=== PATIENT | male | born 1940 | race Caucasian/White ===

== ENCOUNTER → 2019-11-29 09:31 | Outpatient (CLI) | payer OTHER ==
--- NOTE | 2019-12-03 10:54 | EC ---
PATIENT:SPENCER COX DATE OF SERVICE: 11/29/19 SEX: M MEDICAL RECORD: [id number] DATE OF : 42 [facility] AGE [facility] PAT[facility]: 79 ADMISSION DATE: 11/29/19 REFERRING PHYSICIAN: INTERPRETING PHYSICIAN: LIONEL GAMING MD ECHOCARDIOGRAM REPORT ECHO CHARGES 4 ECHO COMPLETE Date: 11/29/19 CLINICAL DIAGNOSIS: HTN HX CAD/AFIB /TR ECHOCARDIOGRAPHIC MEASUREMENTS (adult normal given) AC root (d.<3.7cm) 3.1 cm LV Septum d (<1.2 cm> 1.1 cm Valve Excursion 1.1 cm LV Septum (systole) 1.4 cm Left Atria (s.<4.0cm> 4.1 cm LVPW d(<1.2cm) 1.3 cm RV (d.<2.3cm) 4.1 cm LVPW (sytole) 1.6 cm LV diastole(<5.6CM) 4.8 cm MV E-F(>70mm/sec) cm LV systole 2.9 cm LVOT Diameter 2.1 cm MV exc.(>10mm) 0.80 cm Est.ejection fraction (50-75%) % DOPPLER: LVIT cm/sec A 95.0 cm/sec E 69.0 cm/sec LA cm/sec RVSP 38 mmHg LVOT 97 cm/sec AOP1/2T m/s Asc. Ao 144 cm/sec RVOT 62 cm/sec RA cm/sec PA 108 cm/sec AV Gradient Peak 8.28 mmHg AV Mean 4.56 mmHg AV Area 2.6 cm MV Gradient Peak 4.66 mmHg MV Mean 1.01 mmHg MV Area cm COMMENTS: Medical Artist: 2 ELADIO BA System Support Analyst: 3 Dr. Wren TAPE# PACS Pericardial Effusion N DATE OF SERVICE: Adequate 2D, color flow imaging, spectral Doppler, and M-Mode. Borderline LVH. LV internal dimensions are normal. Wall motion is normal. EF is greater than or equal to 55%. Aortic valve is sclerotic. There is no evidence of stenosis by Doppler interrogation. Left atrium is upper limits of normal and mildly dilated at 4.1 cm. Mitral valve shows no prolapse. Trace MR. Right-sided chambers are grossly normal. Trace TR. ECHOCARDIOGRAM REPORT [id number] SPENCER COX TRANSINT:[id number] Voice Confirmation ID: [id number] DOCUMENT ID: [id number] LIONEL GAMING MD at 1054 CC: [id number] DICTATION DATE: 11/29/19 1309 DIRECTOR OF PERIOPERATIVE SERVICES: 11/29/19 1449 DEP CLI 11/29/19 [place] [id number] [place] [id number]
== END | disposition home or self-care (01) ==
LOC: D.HCCECHO 09:30
PROVIDERS: ATTEND Internal Medicine Interventional Cardiology
DX: I10 Essential (primary) hypertension (principal)

== ENCOUNTER → 2021-01-09 08:01 | Outpatient (CLI) | payer OTHER ==
--- NOTE | ~2021-01-09 | EC ---
PATIENT:SPENCER COX DATE OF SERVICE: 01/09/21 SEX: M MEDICAL RECORD: [id number] DATE OF : 42 LOCATION:[facility] AGE OF PATIENT: 80 ADMISSION DATE: 01/09/21 REFERRING PHYSICIAN: INTERPRETING PHYSICIAN: LIONEL GAMING MD ECHOCARDIOGRAM REPORT ECHO CHARGES 4 ECHO COMPLETE Date: 01/09/21 CLINICAL DIAGNOSIS: ASSESS EF/ MITRAL AND TRICUSPID REGURG HX OF AFIB/HTN ECHOCARDIOGRAPHIC MEASUREMENTS (adult normal given) AC root (d.<3.7cm) 3.2 cm LV Septum d (<1.2 cm> 1.4 cm Valve Excursion 1.5 cm LV Septum (systole) 1.6 cm Left Atria (s.<4.0cm> 3.7 cm LVPW d(<1.2cm) 1.4 cm RV (d.<2.3cm) 4.3 cm LVPW (sytole) 1.6 cm LV diastole(<5.6CM) 4.2 cm MV E-F(>70mm/sec) cm LV systole 2.8 cm LVOT Diameter 2.0 cm MV exc.(>10mm) 1.2 cm Est.ejection fraction (50-75%) % DOPPLER: LVIT cm/sec A 100.0cm/sec E 81.0 cm/sec LA cm/sec RVSP 29 mmHg LVOT 107 cm/sec AOP1/2T 865 m/s Asc. Ao 196 cm/sec RVOT 57 cm/sec RA cm/sec PA 160 cm/sec AV Gradient Peak 15.41mmHg AV Mean 8.06 mmHg AV Area 1.7 cm MV Gradient Peak 3.07 mmHg MV Mean 0.92 mmHg MV Area cm COMMENTS: Applications Consultant: 2 ELADIO BA Spring Tacker: 3 Dr. Wren TAPE# PACS Pericardial Effusion N DATE OF SERVICE: Adequate 2D, color-flow imaging, spectral Doppler, and M-Mode. FINDINGS: Mild LVH. LV internal dimension is normal. Wall motion is normal. EF is greater than or equal to 55%. Aortic valve is sclerotic with minimum restriction of leaflet motion. Peak gradient of 15 mmHg putting this in a very mild range. There is mild AI with color flow imaging. Left atrium is normal at 3.7 cm. Mitral valve shows no prolapse. Mild MR. Right side is ECHOCARDIOGRAM REPORT [id number] SPENCER CXO grossly normal. Trace TR. TRANSINT:[id number] Voice Confirmation ID: [id number] DOCUMENT ID: [id number] LIONEL GAMING MD CC: [id number] DICTATION DATE: 01/12/21 164 UTILIZATION SUPERVISOR: 01/12/21 2255 DEP CLI 01/09/21 [facility] [address] [place] [id number]
== END | disposition home or self-care (01) ==
LOC: D.HCCECHO 01-01 08:30
PROVIDERS: ATTEND Internal Medicine Interventional Cardiology
DX: I34.0 Nonrheumatic mitral (valve) insufficiency (principal)